=== PATIENT | female | born 1995 ===

== ENCOUNTER → 2022-08-05 | Outpatient (CLI) | payer OTHER | END | disposition home or self-care (01) | LOC: LAB SHORT 16:15 → LAB 16:15 | PROVIDERS: Physician Assistant | DX: Z01.419 Encounter for gynecological examination (general) (routine) without abnormal findings (principal) | CPT/HCPCS: G0145 ==

== ENCOUNTER → 2023-11-03 | Outpatient (CLI) | payer OTHER ==
[2023-11-03 13:14] LABS: Candida Group, PCR NOT DETECTED (NOT DETECT); Candida glabrata-krusei, PCR NOT DETECTED (NOT DETECT)
[2023-11-03 14:33] LABS: Bacterial Vaginosis PCR Positive (NEGATIVE)
[2023-11-05 15:07] LABS: APTIMA MEDIA TYPE Unisex Swab; C. TRACHOMATIS BY TMA Negative (Negative); N. GONORRHOEAE BY TMA Negative (Negative); SPECIMEN SOURCE Vaginal
== END ==
LOC: LAB SHORT 08:08 → LAB 08:08
PROVIDERS: Physician Assistant
DX: N39.0 Urinary tract infection, site not specified (principal); R10.2 Pelvic and perineal pain
CPT/HCPCS: 87077; 87086; 87186; 87481; 87491; 87591; 87661; 87801

== ENCOUNTER → 2024-11-07 | Outpatient (CLI) | payer OTHER | LOC: LAB 09:12 → LAB SHORT 09:12 | DX: R82.998 Other abnormal findings in urine (principal) | CPT/HCPCS: 87086 ==

== ENCOUNTER → 2024-11-23 | Outpatient (CLI) | payer OTHER ==
[2024-11-23 15:57] LABS: Source, Urine Voided
[2024-11-23 18:41] LABS: Red Blood Cells, Urine 0-2 /hpf (0-2)
== END ==
LOC: LAB SHORT 11:10 → LAB 11:10
PROVIDERS: Obstetrics & Gynecology
DX: Z34.81 Encounter for supervision of other normal pregnancy, first trimester (principal)
CPT/HCPCS: 81015; 87086

== ENCOUNTER 2025-01-13 19:21 | Emergency (ER) | payer OTHER ==
[~2025-01-13] VITALS: Ht 154.9 cm; Wt 62.6 kg
[2025-01-13] MEDS ORDERED: Ondansetron HCl 2 MG / ML 2ML Vial IV PRN (20:05)
[2025-01-13 20:22] LABS: BASOPHILS ABSOLUTE AUTO 0.04 K/mm3 (0.00-0.23); BASOPHILS PERCENT AUTO 0 % (0-2); EOSINOPHILS ABSOLUTE AUTO 0.02 K/mm3 (0.00-0.68); EOSINOPHILS PERCENT AUTO 0 % (0-6); Hematocrit 40.3 % (33.0-51.0); Hemoglobin 13.5 g/dL (11.5-16.0); IMMATURE GRAN ABSOLUTE AUTO 0.13 K/mm3 (0.00-0.10); IMMATURE GRAN PERCENT AUTO 1 % (0-1); LYMPHOCYTES ABSOLUTE AUTO 1.12 K/mm3 (0.84-5.20); LYMPHOCYTES PERCENT AUTO 9 % (21-46); MONOCYTES ABSOLUTE AUTO 0.56 K/mm3 (0.16-1.47); MONOCYTES PERCENT AUTO 4 % (4-13); Mean Corpuscular HGB Conc 33.5 g/dL (31.5-36.5); Mean Corpuscular Volume 81 fL (80-100); NEUTROPHILS ABSOLUTE AUTO 10.87 K/mm3 (1.96-9.15); NEUTROPHILS PERCENT AUTO 85 % (41-73); NRBC ABSOLUTE 0.00 K/mm3 (0.00-0.02); NRBC Auto 0.0 /100 WBC (0.0-0.2); Platelet Count 366 K/mm3 (150-400); RDW Coefficient Variation 13.8 % (11.7-14.2); RDW Standard Deviation 40.4 fL (35.1-46.3)
[2025-01-13 20:48] LABS: Alanine Aminotransfer (ALT/SGP 17.0 U/L (12-78); Albumin, Blood 3.6 g/dL (3.4-5.0); Albumin/Globulin Ratio 0.8 (0.8-1.8); Anion Gap 11.0 mmol/L (3-11); Aspartate Aminotrans (AST/SGOT 12.0 U/L (12-37); Bilirubin, Total 0.4 mg/dL (0.1-1.0); Blood Urea Nitrogen 9.0 mg/dL (8-24); CO2, Blood 23.0 mmol/L (21-32); Calcium, Blood 9.4 mg/dL (8.5-10.1); Chloride, Blood 106.0 mmol/L (98-108); Creatinine, Blood 0.51 mg/dL (0.40-1.00); Globulin, Blood 4.5 g/dL (2.2-4.0); Glucose, Blood 97.0 mg/dL (70-99); Potassium, Blood 3.6 mmol/L (3.5-5.5); Sodium, Blood 136.0 mmol/L (136-145); Total Protein, Blood 8.1 g/dL (6.4-8.2)
[2025-01-13] MEDS ORDERED: NS 1,000 ML IV ONE (20:50)
[2025-01-14] MEDS ORDERED: ONDA4ODT MM (00:13)
[2025-01-14] MEDS ORDERED: RX Prepack 2 Tabs Ondansetron ODT 4MG UD ONE (00:15)
[2025-01-14 00:35] VITALS: BP 118/85
== END 2025-01-14 00:35 | disposition home or self-care (01) ==
LOC: ER 19:21
PROVIDERS: Emergency Medicine
DX: O99.612 Diseases of the digestive system complicating pregnancy, second trimester (principal); K80.70 Calculus of gallbladder and bile duct without cholecystitis without obstruction; Z3A.15 15 weeks gestation of pregnancy
CPT/HCPCS: 76705; 76815; 80053; 83690; 85025; 96361; 96374; 99284-25; A9270; J2405; J7030

== ENCOUNTER → 2025-02-26 | Outpatient (CLI) | payer OTHER ==
[~2025-02-26] MED LIST: ONDA4ODT MM
[2025-02-26 19:15] LABS: Bacterial Vaginosis PCR Negative (NEGATIVE); Candida glabrata-krusei, PCR NOT DETECTED (NOT DETECT)
[2025-02-26 19:27] LABS: Candida Group, PCR DETECTED (NOT DETECT)
== END ==
LOC: LAB 15:34 → LAB SHORT 15:34
PROVIDERS: Obstetrics & Gynecology
DX: N76.0 Acute vaginitis (principal)
CPT/HCPCS: 81515